=== PATIENT | male | born 1995 | race Caucasian/White ===

== ENCOUNTER 2020-09-13 07:25 | Emergency (ER) | payer OTHER ==
[~2020-09-13] VITALS: Ht 182.9 cm; Wt 96.8 kg
[2020-09-13 08:10] LABS: BASOPHILS % (AUTO) 0 % (0-1); EOSINOPHILS % (AUTO) 0 % (1-7); LYMPHOCYTES % (AUTO) 8 % (22-44); MEAN CORPUSCULAR HGB CONC 34.5 g/dL (33.2-36.2); MEAN PLATELET VOLUME 9.5 fL (7.4-10.4); MONOCYTES % (AUTO) 4 % (2-9); NEUTROPHILS % (AUTO) 87 % (42-75); PLATELET COUNT 255 x10^3/uL (130-400); RED BLOOD COUNT 5.74 x10^6/uL (4.38-5.82); RED CELL DISTRIBUTION WIDTH 13.1 % (9.4-14.8)
[2020-09-13 08:13] LABS: MD NO
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
[2020-09-13 08:17] LABS: ALBUMIN 5.2 g/dL (3.4-5.0); ANION GAP 13 mmol/L (5-15); CALCIUM 9.8 mg/dL (8.5-10.1); CHLORIDE 103 mmol/L (98-107); CREATININE 1.35 mg/dL (0.7-1.3)
--- NOTE | 2020-09-13 08:33 | NUR ---
PT AWARE OF NEED FOR UA. PT REQUESTS TO REMAIN IN ROOM WITH URINAL. PT REPORTS INABILITY TO PRODUCE URINE AT THIS TIME. PT UNCERTAIN ON WHETHER HE WILL TAKE ATARAX ERMD ORDERED. RN TO CHECK BACK ON PT FOR UA AND DECISION ON MEDICATION. PT SITTING UP IN BED, USING PHONE.
--- NOTE | 2020-09-13 09:13 | NUR ---
[facility] AT BEDSIDE FOR REPORT.
--- NOTE | 2020-09-13 09:58 | NUR ---
PT DRY HEAVING. REPORTS NAUSEA "COMES AND GOES." DENIES DESIRE FOR NAUSEA MEDICATION AT THIS TIME.
[2020-09-13 11:03] LABS: AMPHETAMINE SCREEN, URINE Negative (Negative); BARBITURATE SCREEN, URINE Negative (Negative); BENZODIAZEPINE SCREEN, URINE Negative (Negative); CANNABINOID SCREEN, URINE Positive (Negative); METHADONE SCREEN, URINE Negative (Negative); OPIATE SCREEN, URINE Negative (Negative)
[2020-09-13 11:04] LABS: COCAINE SCREEN, URINE Positive (Negative)
[2020-09-13 11:22] VITALS: BP 129/91
== END 2020-09-13 11:24 | disposition home or self-care (01) ==
LOC: ED 08:17
DX: T76.21XA Adult sexual abuse, suspected, initial encounter (principal); F12.10 Cannabis abuse, uncomplicated; F14.10 Cocaine abuse, uncomplicated
CPT/HCPCS: 36415; 80048; 80307; 82040; 85025; 99283